=== PATIENT | male | born 1940 | race Hispanic/Latino ===

== ENCOUNTER 2021-12-12 13:23 | Inpatient (IN) | payer MEDICARE, OTHER ==
[2021-12-12] MEDS ORDERED: Ondansetron PF 4 MG/2 ML Vial IVP PRN (14:30)
[2021-12-12] MEDS ORDERED: Acetaminophen 325 MG TAB PO PRN (14:30)
[2021-12-12] MEDS ORDERED: Dextrose 50% Abboject 50 ML SYRINGE SLOW IVP PRN (14:34)
[2021-12-12] MEDS ORDERED: Dextrose 5% in Water 1,000 ML IV PRN (14:34)
[2021-12-12] MEDS ORDERED: Heparin 5,000 UNITS/ML VIAL SC SCH (15:00)
[2021-12-12 15:10] VITALS: BMI 25.1
[2021-12-12] MEDS ORDERED: FLU VACC QS2021-22(65YR UP)/PF 240 MCG/0.7 ML SYRINGE IM ONE (15:30)
[2021-12-12] MEDS ORDERED: Enoxaparin Sodium 80 MG/0.8 ML SYRINGE SC SCH (18:00)
[2021-12-12] MEDS ORDERED: Famotidine 20 MG TAB PO SCH (21:00)
[2021-12-12] MEDS: Atorvastatin Calcium 40 MG TAB PO SCH (21:17)
[2021-12-12] MEDS: HumaLOG 300 UNITS/3 ML VIAL SC PRN (21:18)
[2021-12-12] MEDS: Enoxaparin Sodium 80 MG/0.8 ML SYRINGE SC SCH (21:18)
[2021-12-13] MEDS: HumaLOG 300 UNITS/3 ML VIAL SC PRN ×4 (05:03→20:58)
[2021-12-13 06:59] LABS: #Monocytes 0.2 10x3/uL (0.0-1.1); #Neutrophils 5.2 10x3/uL (1.5-8.4); %Lymphocytes 8.9 % (18.0-47.0); %Monocytes 2.7 % (0.0-10.0); %Neutrophils 87.9 % (40.0-75.0); Hemoglobin 11.4 g/dL (13.5-17.5); Mean Corpuscular HGB CONC 33.3 g/dL (32.0-36.0); Mean Corpuscular Hemoglobin 30.8 pg (27.0-33.0); Mean Corpuscular Volume 92.4 fl (81.2-95.1); Mean Platelet Volume 10.9 fl (7.4-10.4); Platelet Count 262 10x3/uL (150-450); RBC Distribution Width 13.2 % (11.5-14.5); White Blood Cell (WBC) Count 5.9 10x3/uL (3.5-10.5)
[2021-12-13 07:01] LABS: Anion Gap 17 mmol/L (10-20); BUN (Urea Nitrogen) 57 mg/dL (8.4-25.7); Calc. Creatinine Clearance 22 mL/min (70-130); Calcium 7.6 mg/dL (7.8-10.44); Carbon Dioxide 19 mmol/L (23-31); Chloride 102 mmol/L (98-107); Glucose 468 mg/dL (83-110); Potassium 4.1 mmol/L (3.5-5.1); Sodium 134 mmol/L (136-145)
[2021-12-13 07:06] LABS: Troponin I 0.084 ng/mL (< 0.028)
[2021-12-13] MEDS ORDERED: Lantus 1000 UNITS/10 ML VIAL SC SCH ×2 (09:00→17:00)
[2021-12-13] MEDS ORDERED: Dexamethasone 6 MG in Sodium Chloride 0.9% 50 ML IVPB SCH (09:00)
[2021-12-13] MEDS: Zinc Sulfate 220 MG CAP PO SCH (09:18)
[2021-12-13] MEDS: Dexamethasone 20 MG/5 ML VIAL SLOW IVP SCH (09:18)
[2021-12-13] MEDS: Ezetimibe 10 MG TAB PO SCH (09:18)
[2021-12-13] MEDS: Cholecalciferol 1,000 UNITS (25 MCG) TAB PO SCH (09:18)
[2021-12-13] MEDS: Ascorbic Acid 500 mg Chewable Tablet PO SCH (09:18)
[2021-12-13] MEDS: Clopidogrel Bisulfate 75 MG TAB PO SCH (09:18)
[2021-12-13] MEDS ORDERED: NPH, Human Insulin Isophane 300 UNIT/3 ML VIAL SC SCH (13:00)
[2021-12-13] MEDS ORDERED: Furosemide 40 MG/4 ML VIAL SLOW IVP SCH (13:45)
[2021-12-13] MEDS ORDERED: Lactated Ringer's 1,000 ML IV SCH (13:45)
[2021-12-13] MEDS ORDERED: Dextrose 50% Abboject 50 ML SYRINGE SLOW IVP PRN (16:20)
[2021-12-13] MEDS ORDERED: Dextrose 5% in Water 1,000 ML IV PRN (16:20)
[2021-12-13] MEDS: Enoxaparin Sodium 80 MG/0.8 ML SYRINGE SC SCH (20:57)
[2021-12-13] MEDS: Atorvastatin Calcium 40 MG TAB PO SCH (20:58)
[2021-12-14 04:47] LABS: #Monocytes 0.4 10x3/uL (0.0-1.1); #Neutrophils 11.7 10x3/uL (1.5-8.4); %Basophils 0.1 % (0.0-2.0); %Monocytes 3.1 % (0.0-10.0); %Neutrophils 91.8 % (40.0-75.0); Hemoglobin 11.3 g/dL (13.5-17.5); Mean Corpuscular Hemoglobin 30.7 pg (27.0-33.0); Mean Corpuscular Volume 92.9 fl (81.2-95.1); Mean Platelet Volume 10.5 fl (7.4-10.4); Platelet Count 330 10x3/uL (150-450); RBC Distribution Width 13.1 % (11.5-14.5); Red Blood Cell (RBC) Count 3.68 10x6/uL (4.32-5.72); White Blood Cell (WBC) Count 12.7 10x3/uL (3.5-10.5)
[2021-12-14 05:11] LABS: Anion Gap 17 mmol/L (10-20); BUN (Urea Nitrogen) 59 mg/dL (8.4-25.7); Calc. Creatinine Clearance 25 mL/min (70-130); Calcium 8.6 mg/dL (7.8-10.44); Carbon Dioxide 23 mmol/L (23-31); Chloride 102 mmol/L (98-107); Glucose 130 mg/dL (83-110); Potassium 4.8 mmol/L (3.5-5.1); Sodium 137 mmol/L (136-145)
[2021-12-14] MEDS: Zinc Sulfate 220 MG CAP PO SCH (08:07)
[2021-12-14] MEDS: Dexamethasone 20 MG/5 ML VIAL SLOW IVP SCH (08:07)
[2021-12-14] MEDS: Cholecalciferol 1,000 UNITS (25 MCG) TAB PO SCH (08:07)
[2021-12-14] MEDS: Furosemide 40 MG/4 ML VIAL SLOW IVP SCH (08:07)
[2021-12-14] MEDS: Ascorbic Acid 500 mg Chewable Tablet PO SCH (08:07)
[2021-12-14] MEDS: Clopidogrel Bisulfate 75 MG TAB PO SCH (08:07)
[2021-12-14] MEDS: Ezetimibe 10 MG TAB PO SCH (08:07)
[2021-12-14] MEDS: Lantus 1000 UNITS/10 ML VIAL SC SCH (08:09)
[2021-12-14] MEDS: NPH, Human Insulin Isophane 300 UNIT/3 ML VIAL SC SCH (08:10)
[2021-12-14] MEDS ORDERED: NPH, Human Insulin Isophane 300 UNIT/3 ML VIAL SC SCH (09:00)
[2021-12-14] MEDS: HumaLOG 300 UNITS/3 ML VIAL SC PRN ×2 (17:25→20:26)
[2021-12-14] MEDS ORDERED: Acetaminophen 650 MG Suppository PR PRN (18:29)
[2021-12-14] MEDS ORDERED: REMDESIVIR 200 MG in Sodium Chloride 0.9% 250 ML 210 ML IV SCH (18:30)
[2021-12-14] MEDS ORDERED: Ventolin HFA Inhaler 60 PUFF INHALER INH PRN (19:32)
[2021-12-14] MEDS: Atorvastatin Calcium 40 MG TAB PO SCH (20:19)
[2021-12-14] MEDS: Enoxaparin Sodium 80 MG/0.8 ML SYRINGE SC SCH (20:19)
[2021-12-14 20:28] LABS: ALT (SGPT) 28 U/L (8-55); AST (SGOT) 49 U/L (5-34); Albumin 2.5 g/dL (3.4-4.8); Alkaline Phosphatase 72 U/L (40-110); Bilirubin, Direct 0.2 mg/dL (0.1-0.3); Bilirubin, Total 0.3 mg/dL (0.2-1.2); Protein, Total 5.5 g/dL (5.8-8.1)
[2021-12-15 04:31] LABS: Hemoglobin 10.8 g/dL (13.5-17.5); Mean Corpuscular HGB CONC 33.9 g/dL (32.0-36.0); Mean Corpuscular Hemoglobin 31.1 pg (27.0-33.0); Mean Corpuscular Volume 91.9 fl (81.2-95.1); Mean Platelet Volume 10.8 fl (7.4-10.4); Platelet Count 310 10x3/uL (150-450); RBC Distribution Width 13.4 % (11.5-14.5); Red Blood Cell (RBC) Count 3.47 10x6/uL (4.32-5.72); White Blood Cell (WBC) Count 9.3 10x3/uL (3.5-10.5)
[2021-12-15 04:50] LABS: Anion Gap 17 mmol/L (10-20); BUN (Urea Nitrogen) 54 mg/dL (8.4-25.7); Calc. Creatinine Clearance 27 mL/min (70-130); Calcium 7.6 mg/dL (7.8-10.44); Carbon Dioxide 24 mmol/L (23-31); Chloride 101 mmol/L (98-107); Potassium 4.7 mmol/L (3.5-5.1); Sodium 137 mmol/L (136-145)
[2021-12-15 04:54] LABS: Glucose 51 mg/dL (83-110)
[2021-12-15 05:00] LABS: ALT (SGPT) 30 U/L (8-55); AST (SGOT) 53 U/L (5-34); Albumin 2.5 g/dL (3.4-4.8); Alkaline Phosphatase 66 U/L (40-110); Bilirubin, Direct 0.2 mg/dL (0.1-0.3); Bilirubin, Total 0.4 mg/dL (0.2-1.2); Protein, Total 5.6 g/dL (5.8-8.1)
[2021-12-15 05:29] LABS: MDiff Complete? YES; Manual Diff?? YES
[2021-12-15 06:01] LABS: Band 8 % (5-11); Lymphocytes 4 % (21-51); Monocytes 6 % (0-10); Neutrophil 81 % (42-75); Reactive Lymphocytes 1 % (0-10)
[2021-12-15 06:02] LABS: Platelet Morphology Comment Appears Adequate
[2021-12-15 06:04] LABS: Burr Cells SLIGHT = 2-5 cells (100X) (0-1/hpf); Elliptocytes SLIGHT = 2-5 cells (100X) (0-1/hpf); Helmet Cells SLIGHT = 2-5 cells (100X) (0-1/hpf); Schistocytes SLIGHT = 2-5 cells (100X) (0-1/hpf)
[2021-12-15 06:05] LABS: Poikilocytosis SLIGHT = 6-15 cells (100X) (0-5/hpf)
[2021-12-15] MEDS: Zinc Sulfate 220 MG CAP PO SCH (08:05)
[2021-12-15] MEDS: Ascorbic Acid 500 mg Chewable Tablet PO SCH (08:05)
[2021-12-15] MEDS: Dexamethasone 20 MG/5 ML VIAL SLOW IVP SCH (08:05)
[2021-12-15] MEDS: Clopidogrel Bisulfate 75 MG TAB PO SCH (08:05)
[2021-12-15] MEDS: Ezetimibe 10 MG TAB PO SCH (08:05)
[2021-12-15] MEDS: Cholecalciferol 1,000 UNITS (25 MCG) TAB PO SCH (08:05)
[2021-12-15] MEDS: Furosemide 40 MG/4 ML VIAL SLOW IVP SCH (08:06)
[2021-12-15] MEDS ORDERED: NPH, Human Insulin Isophane 300 UNIT/3 ML VIAL SC SCH (10:15)
[2021-12-15] MEDS: Lantus 1000 UNITS/10 ML VIAL SC SCH (10:36)
[2021-12-15] MEDS: NPH, Human Insulin Isophane 300 UNIT/3 ML VIAL SC SCH (10:51)
[2021-12-15] MEDS ORDERED: REMDESIVIR 100 MG in Sodium Chloride 0.9% 250 ML 230 ML IV SCH (18:30)
[2021-12-15] MEDS: Atorvastatin Calcium 40 MG TAB PO SCH (20:31)
[2021-12-15] MEDS: Enoxaparin Sodium 80 MG/0.8 ML SYRINGE SC SCH (20:32)
[2021-12-16 04:35] LABS: #Monocytes 0.3 10x3/uL (0.0-1.1); #Neutrophils 7.4 10x3/uL (1.5-8.4); %Basophils 0.1 % (0.0-2.0); %Monocytes 3.9 % (0.0-10.0); %Neutrophils 88.2 % (40.0-75.0); Hemoglobin 9.7 g/dL (13.5-17.5); Mean Corpuscular HGB CONC 32.9 g/dL (32.0-36.0); Mean Corpuscular Hemoglobin 30.4 pg (27.0-33.0); Mean Corpuscular Volume 92.5 fl (81.2-95.1); Platelet Count 305 10x3/uL (150-450); RBC Distribution Width 13.3 % (11.5-14.5); Red Blood Cell (RBC) Count 3.19 10x6/uL (4.32-5.72); White Blood Cell (WBC) Count 8.4 10x3/uL (3.5-10.5)
[2021-12-16] MEDS: HumaLOG 300 UNITS/3 ML VIAL SC PRN ×4 (04:38→20:31)
[2021-12-16 04:50] LABS: Anion Gap 13 mmol/L (10-20); BUN (Urea Nitrogen) 61 mg/dL (8.4-25.7); Calc. Creatinine Clearance 25 mL/min (70-130); Calcium 7.8 mg/dL (7.8-10.44); Carbon Dioxide 26 mmol/L (23-31); Chloride 99 mmol/L (98-107); Glucose 360 mg/dL (83-110); Potassium 4.3 mmol/L (3.5-5.1); Sodium 134 mmol/L (136-145)
[2021-12-16] MEDS: Ascorbic Acid 500 mg Chewable Tablet PO SCH (07:40)
[2021-12-16] MEDS: Clopidogrel Bisulfate 75 MG TAB PO SCH (07:40)
[2021-12-16] MEDS: Cholecalciferol 1,000 UNITS (25 MCG) TAB PO SCH (07:40)
[2021-12-16] MEDS: Zinc Sulfate 220 MG CAP PO SCH (07:40)
[2021-12-16] MEDS: Ezetimibe 10 MG TAB PO SCH (07:40)
[2021-12-16] MEDS: Dexamethasone 20 MG/5 ML VIAL SLOW IVP SCH (07:43)
[2021-12-16] MEDS: Lantus 1000 UNITS/10 ML VIAL SC SCH (07:49)
[2021-12-16] MEDS: NPH, Human Insulin Isophane 300 UNIT/3 ML VIAL SC SCH (07:50)
[2021-12-16] MEDS ORDERED: Furosemide 40 MG/4 ML VIAL SLOW IVP SCH (09:00)
[2021-12-16] MEDS: Atorvastatin Calcium 40 MG TAB PO SCH (20:30)
[2021-12-16] MEDS: Enoxaparin Sodium 80 MG/0.8 ML SYRINGE SC SCH (20:30)
[2021-12-17 05:29] LABS: Anion Gap 14 mmol/L (10-20); BUN (Urea Nitrogen) 59 mg/dL (8.4-25.7); Calc. Creatinine Clearance 29 mL/min (70-130); Calcium 8.2 mg/dL (7.8-10.44); Carbon Dioxide 26 mmol/L (23-31); Chloride 102 mmol/L (98-107); Glucose 136 mg/dL (83-110); Potassium 3.9 mmol/L (3.5-5.1); Sodium 138 mmol/L (136-145)
[2021-12-17 05:31] LABS: #Monocytes 0.2 10x3/uL (0.0-1.1); #Neutrophils 8.2 10x3/uL (1.5-8.4); %Basophils 0.1 % (0.0-2.0); %Lymphocytes 9.1 % (18.0-47.0); %Monocytes 2.5 % (0.0-10.0); %Neutrophils 87.7 % (40.0-75.0); Hemoglobin 11.4 g/dL (13.5-17.5); Mean Corpuscular HGB CONC 34.1 g/dL (32.0-36.0); Mean Corpuscular Hemoglobin 31.2 pg (27.0-33.0); Mean Corpuscular Volume 91.5 fl (81.2-95.1); Mean Platelet Volume 10.8 fl (7.4-10.4); Platelet Count 337 10x3/uL (150-450); RBC Distribution Width 13.3 % (11.5-14.5); Red Blood Cell (RBC) Count 3.65 10x6/uL (4.32-5.72); White Blood Cell (WBC) Count 9.3 10x3/uL (3.5-10.5)
[2021-12-17] MEDS: Zinc Sulfate 220 MG CAP PO SCH (07:56)
[2021-12-17] MEDS: Cholecalciferol 1,000 UNITS (25 MCG) TAB PO SCH (07:56)
[2021-12-17] MEDS: Clopidogrel Bisulfate 75 MG TAB PO SCH (07:56)
[2021-12-17] MEDS: Ezetimibe 10 MG TAB PO SCH (07:57)
[2021-12-17] MEDS: Ascorbic Acid 500 mg Chewable Tablet PO SCH (07:57)
[2021-12-17] MEDS: Dexamethasone 20 MG/5 ML VIAL SLOW IVP SCH (07:58)
[2021-12-17] MEDS: Lantus 1000 UNITS/10 ML VIAL SC SCH (07:58)
[2021-12-17] MEDS: NPH, Human Insulin Isophane 300 UNIT/3 ML VIAL SC SCH (07:58)
[2021-12-17] MEDS: HumaLOG 300 UNITS/3 ML VIAL SC PRN ×3 (12:55→20:27)
[2021-12-17] MEDS ORDERED: Amlodipine 10 MG TAB PO SCH (15:30)
[2021-12-17] MEDS: Atorvastatin Calcium 40 MG TAB PO SCH (20:27)
[2021-12-17] MEDS: Enoxaparin Sodium 80 MG/0.8 ML SYRINGE SC SCH (20:27)
[2021-12-18 05:08] LABS: #Monocytes 0.1 10x3/uL (0.0-1.1); #Neutrophils 6.4 10x3/uL (1.5-8.4); %Basophils 0.1 % (0.0-2.0); %Eosinophils 0.3 % (0.0-6.0); %Lymphocytes 10.2 % (18.0-47.0); %Monocytes 1.9 % (0.0-10.0); %Neutrophils 85.8 % (40.0-75.0); Hemoglobin 11.6 g/dL (13.5-17.5); Mean Corpuscular HGB CONC 34.6 g/dL (32.0-36.0); Mean Corpuscular Hemoglobin 31.6 pg (27.0-33.0); Mean Corpuscular Volume 91.3 fl (81.2-95.1); Mean Platelet Volume 10.5 fl (7.4-10.4); Platelet Count 381 10x3/uL (150-450); RBC Distribution Width 13.2 % (11.5-14.5); Red Blood Cell (RBC) Count 3.67 10x6/uL (4.32-5.72); White Blood Cell (WBC) Count 7.5 10x3/uL (3.5-10.5)
[2021-12-18 05:38] LABS: Anion Gap 13 mmol/L (10-20); BUN (Urea Nitrogen) 53 mg/dL (8.4-25.7); Calc. Creatinine Clearance 33 mL/min (70-130); Calcium 8.4 mg/dL (7.8-10.44); Carbon Dioxide 28 mmol/L (23-31); Chloride 102 mmol/L (98-107); Glucose 60 mg/dL (83-110); Potassium 4.4 mmol/L (3.5-5.1); Sodium 139 mmol/L (136-145)
[2021-12-18] MEDS: Clopidogrel Bisulfate 75 MG TAB PO SCH (08:14)
[2021-12-18] MEDS: Zinc Sulfate 220 MG CAP PO SCH (08:14)
[2021-12-18] MEDS: Cholecalciferol 1,000 UNITS (25 MCG) TAB PO SCH (08:14)
[2021-12-18] MEDS: Ascorbic Acid 500 mg Chewable Tablet PO SCH (08:14)
[2021-12-18] MEDS: Ezetimibe 10 MG TAB PO SCH (08:14)
[2021-12-18] MEDS: Dexamethasone 20 MG/5 ML VIAL SLOW IVP SCH (08:15)
[2021-12-18] MEDS: Lantus 1000 UNITS/10 ML VIAL SC SCH (08:17)
[2021-12-18] MEDS ORDERED: Amlodipine 10 MG TAB PO SCH (09:00)
[2021-12-18 12:16] VITALS: BP 140/56; TEMP 98
== END 2021-12-18 14:20 | disposition home health service (06) | DRG 177 ==
LOC: CSHTELE 13:23
PROVIDERS: ADMIT Internal Medicine; ATTEND Internal Medicine
PROC: 8E0ZXY6 Isolation (ICD-10-PCS; 2021-12-12)
PROC: XW033E5 Introduction of Remdesivir Anti-infective into Peripheral Vein, Percutaneous Approach, New Technology Group 5 (ICD-10-PCS; principal; 2021-12-15)
DX: U07.1 COVID-19 (principal); J96.01 Acute respiratory failure with hypoxia; J12.82 Pneumonia due to coronavirus disease 2019; I24.8 Other forms of acute ischemic heart disease; N17.9 Acute kidney failure, unspecified; E87.2 Acidosis; N18.4 Chronic kidney disease, stage 4 (severe); E44.0 Moderate protein-calorie malnutrition; I13.0 Hypertensive heart and chronic kidney disease with heart failure and stage 1 through stage 4 chronic kidney disease, or unspecified chronic kidney disease; I50.9 Heart failure, unspecified; E11.22 Type 2 diabetes mellitus with diabetic chronic kidney disease; E78.2 Mixed hyperlipidemia; E11.649 Type 2 diabetes mellitus with hypoglycemia without coma; Z79.02 Long term (current) use of antithrombotics/antiplatelets; Z79.4 Long term (current) use of insulin; Z79.899 Other long term (current) drug therapy; Z68.25 Body mass index [BMI] 25.0-25.9, adult
CPT/HCPCS: 36415; 36416; 71045; 80048; 80076; 83880; 84145; 84484; 85025; 85379; 86140; 90471; 90662; 94760; G0008; J1100; J1644; J1650; J1815; J1940